=== PATIENT | female | born 1995 | race Caucasian/White ===

== ENCOUNTER 2025-08-09 08:29 | Emergency (ER) | payer OTHER, SELFPAY ==
--- NOTE | ~2025-08-09 | XR_ITS ---
EXAMINATION: XR chest 2V, 08/09/2025 9:00 ESCROW ASSISTANT HISTORY: cough, congestion COMPARISON: No comparisons available. Technique: 2 views obtained. Findings: The lungs are clear, no effusion. No pneumothorax. Heart is normal size. Mediastinal and hilar contours are within normal limits. Bony thorax no acute abnormality. Impression: No acute cardiopulmonary abnormality. Reviewed, dictated and finalized at location P. OW ASSISTANT Impression: No acute cardiopulmonary abnormality.
[2025-08-09 08:50] VITALS: BP 115/68; PULSE 118; RESP 18; TEMP 36.8; O2SAT 98
--- OUTSIDE RECORDS SUMMARY | 2025-08-09 08:53 | XMS_ITS | Clinical Summary ---
Author Organization [facility] Address Formerly [facility] [place] [address] Care Team Providers Care Director Of Partner Marketing Name Role Phone None, Provider MD Primary Care Provider Unavaila ble Allergies Active Allergy Reactions Criticality Noted Date Comments Banana Hives,Itching,Rash,Swelling,Unknown High 02/23/2020 Medications amoxicillin-clav ulanate (AUGMENTIN) 875-125 MG tablet Take 1 tablet (875 mg total) by mouth 2 (two) times daily. 3 Active fluticasone propionate (FLONASE) 50 MCG/ACT nasal spray 2 sprays by Nasal route daily. Active ibuprofen (MOTRIN) 600 MG tablet Take 1 tablet (600 mg total) by mouth every 6 (six) hours as needed. Active omeprazole (PRILOSEC) 40 MG capsule Take 1 capsule (40 mg total) by mouth daily. 3 Active naproxen (NAPROSYN) 500 MG tabletIndication s:Trochanteric bursitis of right hip,Right medial knee pain Take 1 tablet (500 mg total) by mouth 2 (two) times daily with meals. 60 tablet 4 Active hydrocortisone (ANUSOL-HC) 2.5 % rectal creamIndications :Hemorrhoids, unspecified hemorrhoid type Place rectally 2 (two) times daily. 28 g 3 4 Active buPROPion XL (WELLBUTRIN XL) 150 MG 24 hr tabletIndication s:Anxiety Take 1 tablet (150 mg total) by mouth daily. 90 tablet 1 4 Active Active Problems No known active problems Immunizations Immunization Administration Dates Next Due Dtap (Acel-Immune) 08/10/2002 HPV4 (Gardasil) 03/26/2010 Hepatitis A (Havrix 1440 El.U) 02/23/2020 Hepatitis A (Havrix 720 El.U) 04/27/2007, 006 Influenza (FluMist) 04/16/2009 Influenza Adult (Generic) 05/22/2021 MMR (MMRII) 08/10/2002 Meningococcal (Menactra) 04/16/2009 Polio IPV (Ipol) 08/10/2002 Tdap (Generic) 02/23/2019,04/16/2009 Varicella (Varivax) 04/27/2007 Family History Medical History Relation Comments Cancer Maternal Grandmother fromg lung cancer in 11/2020 Alcohol Abuse Mother Asthma Mother Dementia Paternal Grandfather Dementia Paternal Grandmother Relation Status Comments Maternal Grandmother Mother Paternal Grandfather Paternal Grandmother Social History Tobacco Use Types Packs/Day Years Used Date Smoking Tobacco: Former Cigarettes 1 3 Q uit: 06/24/2020 Smokeless Tobacco: Never Tobacco Cessation:Counseling Given: No Alcohol Use Standard Drinks/Week Comments Yes 3.3 (1 standard drink = 0.6 oz p ure alcohol) rarely PHQ-2 Answer Date Recorded Patient Health Questionnaire-2 Score 4 01/19/2024 Comments No Sex and Gender Information Value Date Recorded Sex Assigned at Not on file Legal Sex Female 7:04 PM CDT Gender Identity Not on file Sexual Orientation Not on file Last Filed Vital Signs Vital Sign Reading Time Taken Comments Blood Pressure 101/65 01/19/2024 7:58 AM CDT Pulse 62 01/19/2024 7:58 AM CDT Temperature 36.7 C (98.1 F) 01/19/2024 7:58 AM CDT Respiratory Rate 16 01/19/2024 7:58 AM CDT Oxygen Saturation 99% 01/19/2024 7:58 AM CDT Inhaled Oxygen Concentration - - Weight 97.3 kg (214 lb 9.6 oz) 01/19/2024 7:58 A M CDT Height 175.3 cm (5' 9) 01/19/2024 7:58 AM CDT Body Mass Index 31.69 01/19/2024 7:58 AM CDT Plan of Treatment Health Maintenance Due Date Last Done Comments Cervical Cancer Screening Pa p Smear (Age 21 to 29) Every 3 Years 1997 HPV Vaccines (2 - 2-dose series) 09/26/2010 03/26/2010 Hepatitis B Vaccines (1 of 3 - 19+ 3-dose series) 2016 PHQ-2 (Physician [place]) 08/24/2024 01/19/2024 Annual Physical 01/18/2025 01/19/2024 COVID-19 Vaccine (3 - 2024-2 6 season) 2025 01/23/2021, 12/25/2020 Influenza Adult (#1) 2025 05/22/2021, 04/16/2009 Cervical Cancer Screening 10/22/2025 Po stponed from 1997 (Per Provider Recommendation) DTaP, Tdap and Td Vaccines ( 4 - Td or Tdap) 02/23/2029 02/23/2019, 04/16/2009, 08/10/2002 Meningococcal Vaccine Aged Out 04/16/2009 No cristiane claudia eligible based on patient's age to complete this topic Hepatitis A Vaccines Completed 02/23/2020, 04/27/2007, 04/09/2006 Hepatitis C Completed 01/19/2024 Meningococcal B Vaccine Aged Out No l onger eligible based on patient's age to complete this topic Pneumococcal Vaccine: Pediatrics (0 to 5 Years) and At-Risk Patients (6 to 49 Years) Aged Out No longer eligible b ased on patient's age to complete this topic RSV Immunizations Under 20 Months Aged Out No longer eligible b ased on patient's age to complete this topic Procedures Procedure Name Priority Date/Time Associated Diagnosis Comments HEPATITIS C ANTIBODY Routine 01/19/2024 8:53 AM CDT Encounter for hepatitis C screening test for low risk patient from Last 3 Months or Most Recently Relevant to Health Maintenance Results * HEPATITIS C ANTIBODY (01/19/2024 8:53 AM CDT) HEPATITIS C AB NON-REACTI VE NON-REACT ANGELIQUE 01/19/2024 10:16 PM CDT [facility] Comment: ANTIBODIES TO HCV NOT DETECTED. DOES NOT EXCLUDE THE POSSIBILITY OF EXPOSURE TO HCV. 01/19/2024 8:53 AM CDT Patricia Rodriguez MD LABORATORY Final Result [facility] [address] [place] [address], [id number] from Last 3 Months or Most Recently Relevant to Health Maintenance Insurance [facility] Care Teams Director Of Partner Marketing Relationship Specialty Start Date End Date None, Provider, PCP - General UNKNOWN PHYSICIAN SPECIALTY 10/02/23
--- OUTSIDE RECORDS SUMMARY | 2025-08-09 08:53 | XMS_ITS | Clinical Summary ---
Author Organization [facility] Virtual Care Address [address] [place] [phone] Phone Care Team Providers Care News Camera Operator Name Role Phone No, Physician Primary Care Provider [phone] Allergies Active Allergy Reactions Criticality Noted Date Comments Banana Hives,Itching,Swelling,Rash High 02/23/20 20 Medications valACYclovir (VALTREX) 1 gram tablet Take 2 tabs (2000 mg) 2 times a days for 1 day. 4 tablet 5 11/17/2022 Active Active Problems Problem Noted Date Diagnosed Date Routine adult health maintenance 07/22/2023 Overview (07/22/2023): Health Maintenance: -PCV20: N/A -Tdap vaccine: 2019 -Influenza vaccine: -Shingles vaccine: N/A -Colonoscopy: N/A -Last WWE: -Last Mammogram: N/A -Last DEXA: N/A -Last eye exam: N/A -Last MHA: N/A GERD (gastroesophageal reflux disease) 3 Hemorrhoids 03/25/2022 Depression, major, recurrent, mild 05/22/2021 12/26/2022 Generalized anxiety disorder with panic attacks 05/22/2021 12/26/2022 Immunizations Immunization Administration Dates Next Due DTaP 08/10/2002 HPV, Quadrivalent 03/26/2010 Hep A, Adult 02/23/2020 Hep A, Pediatric 04/27/2007,04/09/2006 Hep A, Unspecified 04/27/2007,04/09/2006 IPV 08/10/2002 Influenza LAIV (Nasal) 04/16/2009 Influenza, Quadrivalent, Karley l Culture-based MDCK, Preservative Free, Antibiotic Free, Intramuscular 05/22/2021 Influenza, Trivalent, Cell C ulture-based MDCK, Preservative Free, Antibiotic Free, Intramuscular 05/22/2021 Influenza, Unspecified 04/16/2009 MMR 08/10/2002 Meningococcal MCV4P (Menactra) 04/16/2009 Tdap 02/23/2019,04/16/2009 Varicella 04/27/2007 Social History Tobacco Use Types Packs/Day Years Used Date Smoking Tobacco: Never Assessed Comments Unknown Sex and Gender Information Value Date Recorded Sex Assigned at Not on file Legal Sex Female 4:08 AM CDT Gender Identity Female 11/17/2022 4:11 AM CDT Sexual Orientation Lesbian 11/17/2022 4: 11 AM CDT Plan of Treatment Health Maintenance Due Date Last Done Comments Cervical Cancer Screening 1997 Depression Screening 1997 Hepatitis C Screening 1997 Varicella Vaccines (2 of 2 - 2-dose childhood series) 05/14/2009 04/27/2007 HPV Vaccines (2 - 2-dose series) 09/26/2010 03/26/2010 Hepatitis B Screening 2015 Regular Well Visit/Exam 18-64 2015 Covid-19 Vaccine ( season) 2025 01/23/2021, 12/25/2020 Influenza Vaccine (#1) 2025 , 05/22/2021, 04/16/2009, Additional history exists DTaP/Tdap/Td Vaccine (4 - Td or Tdap) 02/23/2029 02/23/2019, 04/16/2009, 08/10/2002 Pneumococcal vaccine <65 Aged Out No longer eligible based on patient's age to complete this topic Insurance [employer] C[employer] Care Teams News Camera Operator Relationship Specialty Start Date End Date No, Physician PCP - General 07/20/23
--- OUTSIDE RECORDS SUMMARY | 2025-08-09 08:53 | XMS_ITS | Encounter Summary ---
Author Organization [facility] Address [address] [place] [id number] Care Team Providers Care Medical Communication Specialist Name Role Phone None, Provider Primary Care Provider Unavaila ble Encounter Details Date Type Department Care Team (Late st Contact Info) Description 02/22/2024 Endymedt Message Enc [facility] Family Medicine [facility] [address] [place] [phone] Patricia Rodriguez MD [address] [place] [address] Questions about Bupropion medication Social History Tobacco Use Types Packs/Day Years Used Date Smoking Tobacco: Former Cigarettes 1 3 Q uit: 06/24/2020 Smokeless Tobacco: Never Alcohol Use Standard Drinks/Week Comments Yes 3.3 (1 standard drink = 0.6 oz p ure alcohol) rarely PHQ-2 Answer Date Recorded Patient Health Questionnaire-2 Score 4 01/19/2024 Comments No Sex and Gender Information Value Date Recorded Sex Assigned at Not on file Legal Sex Female 7:04 PM CDT Gender Identity Not on file Sexual Orientation Not on file documented as of this encounter Plan of Treatment Not on file documented as of this encounter Visit Diagnoses Not on filedocumented in this encounter Additional Health Concerns Assessment Noted Time PHQ-9 Depression Total Score: 13 024 7:59 AM CDT documented as of this encounter Care Teams Medical Communication Specialist Relationship Specialty Start Date End Date None, Provider, PCP - General UNKNOWN PHYSICIAN SPECIALTY 10/02/23 documented as of this encounter
--- OUTSIDE RECORDS SUMMARY | 2025-08-09 08:53 | XMS_ITS | Clinical Summary ---
Author Organization [facility] Address [address] [place] [address] Care Team Providers Care Assembly Line Inspector Name Role Phone Anthony Hall DO Primary Care Provider [phone] Jose Yates MD Unavailable [phone] Cronelia James APRN-PASSENGER CONDUCTOR Unavailable [phone] Source Comments [facility],non-owned Affiliates and Associated Physician Practices is amultiple site organization consisting of ambulatory clinics and hospital sitesin [place], [place], [place] and [place]. This disclosure is being madepursuant to the Care Everywhere program and may not contain all information available regarding this patient. Last updated 18.[facility] Allergies Active Allergy Reactions Criticality Noted Date Comments Banana Unknown 02/23/2020 Medications * Be aware that medications may not be up to date on this document. Alwaysverify current medications with the patient. Acetaminophen (TYLENOL) 325 MG CAPS Take 3 capsules by mouth as needed Active lidocaine (Lidoderm) 4 % patch Apply 1 (one) patch to skin as needed Apply patch to most painful area and remove after 12 hours. May reapply a new patch 12 hours later. Active Active Problems Problem Noted Date Diagnosed Date Hemorrhoids 03/25/2022 Depression, major, recurrent, mild 05/22/2021 Generalized anxiety disorder 05/22/2021 Overweight 05/22/2021 Immunizations Immunization Administration Dates Next Due Covid Moderna primary monovalent 12+ yr 0.5mL ,12/25/2020 DTaP VACCINE IM (6wk-6yrs) 08/10/2002 HEP A PED/ADULT VACCINE 04/27/2007,04/09/2006 HEP A VACCINE, ADULT 02/23/2020 Human Papilloma Virus Quadrivalent Vaccine 03/26 INFLUENZA VACCINE 04/16/2009 INFLUENZA VACCINE, CELL CULT URE, QUADR. (FLUCELVAX QUADRIVALENT; 6MO+) (CCIIV4) 05/22/2021 MENINGOCOCCAL ACWY (MCV4P) VAC IM 04/16/2009 MMR 08/10/2002 POLIO IPV 08/10/2002 TDAP (7yrs+) 02/23/2019,04/16/2009 VARICELLA 04/27/2007 Family History Medical History Relation Name Comments None Known Brother None Known Father Asthma Mother Multiple Sclerosis Mother None Known Sister Relation Name Status Comments Brother Alive Father Alive Mother Alive Sister Alive Social History Tobacco Use Types Packs/Day Years Used Date Smoking Tobacco: Former Cigarettes 1 4 1 - 05/24/2020 Smokeless Tobacco: Never Tobacco Cessation:Counseling Given: Not Answered Alcohol Use Standard Drinks/Week Comments Yes 0 (1 standard drink = 0.6 oz pur e alcohol) 1 drink everyother day PHQ-2 Answer Date Recorded PHQ2 TOTAL SCORE 0 08/04/2022 Comments No Sex and Gender Information Value Date Recorded Sex Assigned at Female 10/14/2021 2:02 PM [employer] Legal Sex Female 1:44 PM CDT Gender Identity Female 10/14/2021 2:02 PM [employer] Sexual Orientation Lesbian 10/14/2021 2: 02 PM [employer] Last Filed Vital Signs Vital Sign Reading Time Taken Comments Blood Pressure 120/68 08/04/2022 2:55 PM [employer] Pulse 81 08/04/2022 2:55 PM [employer] Temperature 37.3 C (99.2 F) 08/04/2022 2:55 PM [employer] Respiratory Rate 18 01/31/2022 4:05 PM CDT Oxygen Saturation 86% 08/04/2022 2:5 5 PM [employer] has gel nail vietnamese Inhaled Oxygen Concentration - - Weight 83 kg (183 lb) 08/04/2022 2:55 PM [employer] Height 175.3 cm (5' 9) 03/25/2022 1:20 PM CDT Body Mass Index 27.02 03/25/2022 1:20 PM CDT Plan of Treatment Health Maintenance Due Date Last Done Comments HPV VACCINE (2 - 2-dose series) 09/26/2010 03/26/2010 HEPATITIS B VACCINE (1 of 3 - 19+ 3-dose series) 2016 DEPRESSION SCREENING 08/24/2024 08/04/2022, 07/30/2022, 07/22/2022, Additional history exists PAP SMEAR 09/09/2024 09/09/2021, 10/08/2018 (Done Outside Per Report) COVID-19 VACCINE ( season) 2025 01/23/2021, 12/25/2020 INFLUENZA VACCINE (#1) 2025 05/22/2021, 2008 DTAP/TDAP/TD VACCINES (4 - Td or Tdap) 02/23/2029 02/23/2019, 04/16/2009, 08/10/2002 ZOSTER VACCINE (1 of 2) 2047 MENINGOCOCCAL GROUPS A/C/Y/W VACCINE Aged Out 04/16/2009 No longer eligible based on patient's age to complete this topic HEPATITIS A VACCINE Completed 02/23/2020, 04/27/2007, 04/09/2006 HEPATITIS C SCREENING Discontinued 03/25/2022, 022 HIV SCREENING Discontinued 03/25/2022 HIB VACCINE Aged Out No longer eligi ble based on patient's age to complete this topic MENINGOCOCCAL (Group B) VACCINE SHARED DECISION-MAKING Aged Out No longer eligible based on patient's age to complete this topic PNEUMOCOCCAL VACCINE Aged Out No long er eligible based on patient's age to complete this topic Procedures Procedure Name Priority Date/Time Associated Diagnosis Comments HEPATITIS C ANTIBODY Routine 03/25/2022 1:50 PM CDT Screen for STD (sexually transmitted disease) HIV-1 HIV-2 ANTIBODY + HIV P24 AG PANEL Routine 03/25/2022 1:50 PM CDT Screen for STD (sexually transmitted disease) PAP IG LB CT+NG RFLX HPV APTIMA ASCU Routine 09/09/2021 11:31 AM [employer] Pap smear, as part of routine gynecological examination Screening examination for STD (sexually transmitted disease) from Last 3 Months or Most Recently Relevant to Health Maintenance Results * HIV-1 HIV-2 ANTIBODY + HIV P24 AG PANEL (03/25/2022 1:50 PM CDT) Pathologist [facility] HIV Screen 4th Generation w Reflex Non Reactive Non Reactive [facility] Comment: HIV Negative HIV-1/HIV-2 antibodies and HIV-1 p24 antigen were NOT detected. There is no laboratory evidence of HIV infection. Blood BLOOD SPECIMEN / Unknown 03/25/2022 1:50 PM CDT 03/25/2022 Narrative Resulting Agency Comment Lab Testing performed at: [address] [id number] Anel Gore APRN-PASSENGER CONDUCTOR LAB - CHEMISTRY ORDERAB LES Final Result [facility] INSURANCE BILL [address] [place] [address] * HEPATITIS C ANTIBODY (03/25/2022 1:50 PM CDT) [facility] Hepatitis C Antibody 0.1 0.0 - 0.9 s/co ratio [facility] Comment: Negative: < 0.8 Indeterminate: 0.8 - 0.9 Positive: > 0.9 . HCV antibody alone does not differentiate between previous resolved infection and active infection. The CDC and current clinical guidelines recommend that a positive HCV antibody result be followed up with an HCV RNA test to support the diagnosis of acute HCV infection. [facility] offers Hepatitis C Virus (HCV) RNA, Diagnosis, JAI (542567) and Hepatitis C Virus (HCV) Antibody with reflex to Quantitative Real-time PCR ([id number]). Blood BLOOD SPECIMEN / Unknown 03/25/2022 1:50 PM CDT 03/25/2022 Narrative Resulting Agency Comment Lab Testing performed at: [address] [id number] Anel J Sevem PASSENGER TRAIN BRAKER-PASSENGER CONDUCTOR LAB - CHEMISTRY ORDERAB LES Final Result [facility] INSURANCE BILL [address] [place] [place] [address] * PAP IG LB CT+NG RFLX HPV APTIMA ASCU (09/09/2021 11:31 AM [employer]) Diagnosis [facility] INSURANCE BILL Comment:NEGATIVE FOR INTRAEP ITHELIAL LESION OR MALIGNANCY. Specimen Adequacy [facility] INSURANCE BILL Comment: Satisfactory for evaluation. Endocervical and/or squamous metaplastic cells (endocervical component) are present. Clinician Provided ICD10 [facility] INSURANCE BILL Comment: Z01.419 Z11.3 Performed by [facility] INSURANCE BILL Comment:Libertad Palacios Cyto technologist (ASCP) Comment . [facility] INSURANCE BILL Note [facility] INSURANCE BILL Comment: The Pap smear is a screening test designed to aid in the detection of premalignant and malignant conditions of the uterine cervix. It is not a diagnostic procedure and should not be used as the sole means of detecting cervical cancer. Both false-positive and false-negative reports do occur. . IGLBP CPT Code Automation [facility] INSURANCE BILL Comment: This liquid based ThinPrep(R) pap test was screened with the use of an image guided system. Note [facility] INSURANCE BILL Comment: The HPV DNA reflex criteria were not met with this specimen result therefore, no HPV testing was performed. . Chlamydia trachomatis JAI Negative Negative [facility] INSURANCE BILL GC DNA Probe Negative Negative [facility] INSURANCE BILL PART OF UTERINE CERVIX / Unknown 09/09/2021 11:31 AM [employer] 09/10/2021 Narrative [facility] INSURANCE BILL - 09/11/2021 1:08 PM [employer] Source.............Cervix;Endocervix LMP / Prev Treat...VAT=[id number] No. of containers..01 ThinPrep Vial Resulting Agency Comment [facility]: [facility] [id number] [place] James Esquivel MD LAB - PATHOLOGY/CYTOLOGY ORD ERABLES Final Result Performing Organization Address City/[facility]/ZIP Co de Phone Number [facility] INSURANCE BILL [address] [place] [address] from Last 3 Months or Most Recently Relevant to Health Maintenance Insurance [employer] Care Teams Assembly Line Inspector Relationship Specialty Start Date End Date Anthony Hall DO [address] [place] [phone] PCP - General Internal Medicine 05/22/21 Jose Yates MD [address] [place] [phone] Gastroenterology 05/22/21 Cornelia James APRN-PASSENGER CONDUCTOR [address] [place] [phone] Envelope Maker Nurse Practitioner [facility] 05/22/21
--- OUTSIDE RECORDS SUMMARY | 2025-08-09 08:53 | XMS_ITS | Clinical Summary ---
Author Organization [facility] Address [address] [place] [address] Care Team Providers Care Cone Machine Feeder Name Role Phone Florencia Garrison MD Primary Care Provider [phone] Allergies Active Allergy Reactions Criticality Noted Date Comments Banana Hives,Itching,Swelling High 10/10/2022 Medications fluticasone propionate (FLONASE) 50 mcg/spray [place], Suspension nasal inhaler Administer 2 Sprays in each nostril daily. Active omeprazole (PriLOSEC) 40 mg Capsule, Delayed Release(E.C.)Ind ications:Gastroe sophageal reflux disease, unspecified whether esophagitis present Take 1 Capsule (40 mg) by mouth daily. 30 Capsule 2 3 Active loratadine (CLARITIN) 10 mg tablet Take 1 Tablet (10 mg) by mouth daily. 5 Active cholecalciferol, Vitamin D3, 50 mcg (2,000 unit) TabletIndication s:Vitamin D deficiency Take 1 Tablet (2,000 Units) by mouth daily. 5 Active acetaminophen (TYLENOL) 500 mg tablet Take 1,000 mg by mouth every 6 hours as needed for Pain. Active hydrocortisone (Anusol-HC) 2.5 % cream with perineal applicatorIndica tions:Other hemorrhoids Insert by rectum 2 times daily. 30 Gram 2 5 Active Active Problems Problem Noted Date Diagnosed Date Change in bowel movement 07/06/2025 Assessment & Plan (07/06/2025 4:58 PM BROKERAGE MANAGER): Acute. No alarm symptoms. Recommend she keep food log to try to identify triggers, increase fiber and try elimination diet. If no improvement in four weeks can refer to GI for possible colonoscopy. She is agreeable. GERD (gastroesophageal reflux disease) 3 Hemorrhoids 03/25/2022 Generalized anxiety disorder with panic attacks 05/22/2021 Depression, major, recurrent, mild 05/22/2021 Overweight 05/22/2021 Resolved Problems Problem Noted Date Diagnosed Date Resolved Date Screening for cervical cancer 07/06/2025 07/06/2025 Encounters Date Type Department Care Team Description 07/06/2025 3:00 PM BROKERAGE MANAGER Office Visit [facility] Internal Medicine - [address] [address] Holly Flores PA-C Change in bowel movement (Primary Dx); Other hemorrhoids 05/23/2025 External Device Data STL ABSTRACTION Provider, Abstract from Last 3 Months Immunizations Immunization Administration Dates Next Due (ADACEL/BOOSTRIX)(10 YR UP) TDAP VACCINE, 0.5ML, IM 02/23/2019,04/16/2009 (GARDASIL)(9-45 YRS) HUMAN P APILLOMAVIRUS VACCINE, TYPES 6, 11, 16, 18, QUADRIVALENT (4VHPV), 3 DOSE, IM 03/26/2010 (HAVRIX/VAQTA)(12 MO-18 YRS) HEPATITIS A VACCINE 0.5 ML PED/ADOL 2 DOSE, IM 04/27/2007,04/09/2006 (INFANRIX)(6 WKS-6 YRS) DIPT HERIA, TETANUS TOXOIDS, AND ACCELLULAR PERTUSSIS VACCINE (DTAP), 0.5 ML IM 08/10/2002 (IPOL)(6 WKS AND UP) POLIOVI KENNY VACCINE, INACTIVATED (IPV), 3 DOSE, SUBCUT OR IM 08/10/2002 (M-M-R II/PRIORIX)(12 MO UP) MEASLES, MUMPS AND RUBELLA VIRUS VACCINE, 0.5 ML IM/SUBCUT 08/10/2002 (MENACTRA)(9 MO-55 YR) MENIN GOCOCCAL POLYSACCHARIDE A, C, Y AND W-135 DIPTHERIA TOXOID CONJUGATE VACCINE, (PF), 0.5ML, IM 04/16/2009 (VARIVAX)(12 MOS UP)VARICELL A VIRUS VACCINE (PF) 0.5 ML, SUB CUT 04/27/2007 Hepatitis A Vaccine 02/23/2020 Hepatitis A Vaccine, Unspecified Formulation 11/2006,04/09/2006 INFLUENZA VACCINE QUADRIVALE NT 6 MOS UP CELL DERIVED PF IM 05/22/2021 Influenza Vaccine 18+ C.derived Pf Im 05/22/2021 Influenza Vaccine Nasal 04/16/2009 Influenza, Unspecified Formulation 05/22/2021, Family History Medical History Relation Name Comments Healthy Brother Healthy Father Unknown Maternal Grandfather Breast Cancer Maternal Grandmother Eloina Galaviz Lung Cancer Maternal Grandmother Eloina Galaviz She pa ssed in 12/12 from lung cancer Asthma Mother Rylie Lawrence Multiple Sclerosis Mother Rylie Lawrence Other Mother Rylie Lawrence Has had MS sinc e 2000 Alzheimer's Disease Paternal Grandfather Carl Lawrence Cancer Paternal Grandfather Carl Lawrence Prostat e cancer Alzheimer's Disease Paternal Grandmother Healthy Paternal Grandmother Healthy Sister Relation Name Status Comments Brother Alive Father Alive Maternal Grandfather Maternal Grandmother Eloina Galaviz Alive breast ca 70's Mother Rylie Lawrence Alive Paternal Grandfather Carl Lawrence Alive prostat e Paternal Grandmother Alive Sister Alive Social History Tobacco Use Types Packs/Day Years Used Date Smoking Tobacco: Former Cigarettes 1 2 1 08/24/2017 - 06/24/2020 Tobacco Cessation:Counseling Given: No Comments:I have stopped vaping and smoking cigarettes/tobacco but I used to smoke very frequently Alcohol Use Standard Drinks/Week Comments Yes 2 (1 standard drink = 0.6 oz pure alcohol) I have stomach issues that are aggravated by alcohol Feeling Safe Answer Date Recorded Within the last year, have y ou been afraid of your partner or ex-partner? No 03/19/2020 Within the last year, have y ou been humiliated or emotionally abused in other ways by your partner or ex-partner? No Within the last year, have y ou been kicked, hit, slapped, or otherwise physically hurt by your partner or ex-partner? No 03/19/2020 Within the last year, have y ou been raped or forced to have any kind of sexual activity by your partner or ex-partner? No 03/19/2020 Social Connections Answer Date Recorded In a typical week, how many times do you talk on the phone with family, friends, or neighbors? Three times a week 03/19/2020 How often do you get togethe r with friends or relatives? Once a week 03/19/2020 How often do you attend chur ch or rastafari services? Never 03/19/2020 Do you belong to any clubs o r organizations such as protestant groups, unions, fraternal or athletic groups, or school groups? No 03/19/2020 How often do you attend meet ings of the clubs or organizations you belong to? Never 03/19/2020 Are you , , di vorced, , never , or living with a partner? Never 03/19/2020 Financial Resource Strain Answer Date R ecorded How hard is it for you to pa y for the very basics like food, housing, medical care, and heating? Somewhat hard 03/19/2020 Food Insecurity Answer Date Recorded Within the past 12 months, y ou worried that your food would run out before you got the money to buy more. Never true 03/19/20 20 Within the past 12 months, t he food you bought just didn't last and you didn't have money to get more. Never true 03/19/2020 Transportation Needs Answer Date Record ed In the past 12 months, has l ack of transportation kept you from medical appointments or from getting medications? No 02/22 In the past 12 months, has l ack of transportation kept you from meetings, work, or from getting things needed for daily living? No 03/19/2020 Education Answer Date Recorded What is the highest level of school you have completed or the highest degree you have received? 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 Not on file Not on file Not on file Last Filed Vital Signs Vital Sign Reading Time Taken Comments Blood Pressure 112/72 07/06/2025 3:00 PM BROKERAGE MANAGER Pulse 67 07/06/2025 3:00 PM BROKERAGE MANAGER Temperature 36.4 C (97.5 F) 07/06/2025 3:00 PM BROKERAGE MANAGER Respiratory Rate 18 07/06/2025 3:00 PM BROKERAGE MANAGER Oxygen Saturation 97% 07/06/2025 3:00 PM BROKERAGE MANAGER Inhaled Oxygen Concentration - - Weight 99.3 kg (219 lb) 07/06/2025 3:00 PM BROKERAGE MANAGER Height 175.3 cm (5' 9) 07/06/2025 3:00 PM BROKERAGE MANAGER Body Mass Index 32.34 07/06/2025 3:00 PM BROKERAGE MANAGER Plan of Treatment Upcoming Encounters Date Type Department Care Team (Late st Contact Info) Description 09/27/2025 3:30 PM BROKERAGE MANAGER Office Visit [facility] Internal Medicine - [address] [address] Charissa Benavides, [facility] [place] [address] Health Maintenance Due Date Last Done Comments HPV VACCINES (2 - 2-dose series) 09/26/2010 03/26/20 10 HEPATITIS B VACCINES (1 of 3 - 19+ 3-dose series) 2016 HPV/Cotest (21-29) 2018 CERVICAL CANCER SCREENING 09/19/2024 PAP SMEAR 09/19/2024 09/19/2021 (Prev iously completed), 09/11/2021 (Previously completed) INFLUENZA VACCINE (#1) 2025 , 05/22/2021, 04/16/2009 COVID-19 Vaccine (3 - 2024-2 6 season) 2025 01/23/2021, 12/25/2020 DTAP/TDAP/TD VACCINES (4 - T d or Tdap) 02/23/2029 02/23/2019, 04/16/2009, 08/10/2002 CHLAMYDIA SCREENING (ANNUAL) 11-24 YEARS Discontinued 03/19/2020 Preventative Visit- Commercial Completed 0 09/27/2024, 01/19/2024, 10/28/2022, Additional history exists Procedures Procedure Name Priority Date/Time Associated Diagnosis Comments VAGINOSIS/VAGINITIS PANEL PLUS Routine 03/19/2020 10:23 AM CDT Vaginal odor Vaginal itching Screening examination for STD (sexually transmitted disease) from Last 3 Months or Most Recently Relevant to Health Maintenance Results * VAGINOSIS/VAGINITIS PANEL PLUS (03/19/2020 10:23 AM CDT) LACTOBACILLUS SPECIES 7.3 Log (cells/m L) 04/02/2020 2:11 AM CDT [facility] JAI - ATOPOBIUM VAGINAE NOT DETECTED Log (cells/m L) 04/02/2020 2:11 AM CDT [facility] JAI - MEGASPHAERA SPECIES NOT DETECTED Log (cells/m L) 04/02/2020 2:11 AM CDT [facility] GARDNERELLA VAGINALIS <4.7 Log (cells/m L) 04/02/2020 2:11 AM CDT [facility] CATEGORY NOT SUPPORTIVE 04/02/2020 2:11 AM CDT [facility] Comment: REFERENCE RANGE: BV Category: NOT SUPPORTIVE Methodology: Real-Time PCR NOT SUPPORTIVE OF BV: The pattern of results is not supportive of a diagnosis of BV: 1) Presence of Lactobacillus spp., G. vaginalis levels less than 6.0 log cells/mL, and absence of A. vaginae and Megasphaera spp; or 2) Absence of all targeted organisms; or 3) Absence of Lactobacillus spp. plus G. vaginalis detected at levels less than 6.0 log cells/mL and absence of A. vaginae and Megasphaera spp. EQUIVOCAL FOR BV: The pattern of results is neither supportive nor not supportive of a diagnosis of BV. The patient may be in transition into or out of BV: Presence of Lactobacillus spp. plus G. vaginalis (greater or equal to 6.0 log cells/mL) and/or one of the other BV-associated pathogens. SUPPORTIVE OF BV: The pattern of results is supportive of a diagnosis of BV: Absence of Lactobacillus spp. and presence of G. vaginalis greater than or equal to 6.0 log cells/mL and/or one or both of the other BV-associated pathogens. Concentration for Lactobacilli (L. acidophilus/crispatus, L. jensenii) are collectively reported under the term Lactobacillus spp., as these species are among the peroxide producing Lactobacilli thought to be protective against bacterial vaginosis. Atopobium vaginae, Megasphaera spp., and Gardnerella (greater than 6.0 log cells/mL) have been associated with vaginosis when present in the absence of peroxidase producing Lactobacilli. This test was developed and its analytical performance characteristics have been determined by [facility]. It has not been cleared or approved by FDA. This assay has been validated pursuant to the CLIA regulations and is used for clinical purposes. Sarah albicans NOT DETECTED 2019 2:11 AM CDT [facility] Sarah glabrata NOT DETECTED 2019 2:11 AM CDT [facility] C. TROPICALIS DNA NOT DETECTED 04/02 2:11 AM CDT [facility] Sarah Parapsilosis NOT DETECTED 04/02/2020 2:11 AM CDT [facility] Comment: REFERENCE RANGE: NOT DETECTED Methodology: Real-Time PCR This test was developed and its analytical performance characteristics have been determined by [facility]. It has not been cleared or approved by FDA. This assay has been validated pursuant to the CLIA regulations and is used for clinical purposes. SURESWAB(R) TRICHOMONAS VAGINALIS RNA QL TMA NOT DETECTED 04/02/2020 2:11 AM CDT [facility] Comment: REFERENCE RANGE: NOT DETECTED Methodology: Leather Heel Breaster Mediated Amplification (TMA) For additional information, please refer to [email or web address] (This link is being provided for informational/educational purposes only.) C TRAC RNA NOT DETECTED 04/02/2020 2:11 AM CDT [facility] N.GONORRHOEAE RNA, TMA NOT DETECTED 04/02/2020 2:11 AM CDT [facility] Comment: REFERENCE RANGE: NOT DETECTED Methodology: Leather Heel Breaster Mediated Amplification (TMA) to detect RNA. The analytical performance characteristics of this assay, when used to test SurePath(TM) specimens have been determined by [facility]. The modifications have not been cleared or approved by the FDA. This assay has been validated pursuant to the CLIA regulations and is used for clinical purposes. For additional information, please refer to [email or web address]/[email or web address] (This link is being provided for informational/ educational purposes only.) Genital SPECIMEN FROM VAGINA / Unknown Collection / Unknown 03/19/2020 10:23 AM CDT 03/19/2020 1:50 PM CDT Narrative [facility] - 04/02/2020 2:11 AM CDT Performing Organization Information: Site ID: [id number] Name: [employer] [facility] [employer] Address: [address] [place] [address] Director: Benitez Sherwood MD Performing Organization Information: Site ID: [id number] Name: [employer] Address: [address] [place] [address] Director: Benitez Sherwood MD Performing Organization Information: Site ID: [id number] Name: [employer] Address: [address] [place] [address] Director: Benitez Sherwood MD Performing Organization Information: Site ID: [id number] Name: [employer] Address: [address] [place] [address] Director: Benitez Sherwood MD Cornelia James NP MICROBIOLOGY - GENERAL ORD ERABLES Final Result Performing Organization Address City/State/[facility] Co de Phone Number [facility] [phone] from Last 3 Months or Most Recently Relevant to Health Maintenance Insurance [facility] [id number] Care Teams Cone Machine Feeder Relationship Specialty Start Date End Date Florencia Garrison MD [address] [place] [phone] PCP - General Internal Medicine 08/22/24
--- OUTSIDE RECORDS SUMMARY | 2025-08-09 09:05 | XMS_ITS | Clinical Summary ---
Author Organization [employer] [facility] Address [address] [place] [address] Care Team Providers Care Supervisor Covering And Lining Name Role Phone No, Pcp FIRMWARE ARCHITECT Primary Care Provider Unavailabl e Social History Tobacco Use Types Packs/Day Years Used Date Smoking Tobacco: Never Assessed Comments Unknown Sex and Gender Information Value Date Recorded Sex Assigned at Not on file Legal Sex Female 10:31 AM EDT Gender Identity Not on file Sexual Orientation Not on file Plan of Treatment Not on file Medical Devices Not on file Care Teams Supervisor Covering And Lining Relationship Specialty Start Date End Date No, Pcp, FIRMWARE ARCHITECT N/A Do not use PCP - General Family Medicine 05/17/20
--- NOTE | 2025-08-09 09:33 | ED_ITS ---
HPI - URI/Sore Throat General Chief Complaint: Upper Respiratory Infection Stated Complaint: URI Time Seen by Provider: 08/09/25 09:15 Source: patient and RN notes reviewed Mode of arrival: ambulatory Limitations: no limitations History of Present Illness HPI Narrative: 30-year-old female presents Express Care complaining of chest congestion, fevers, body aches, chills, sweats, cough, congestion for 2 days. Patient said multiple people at her work as pneumonia. Patient took Tylenol this morning to help with symptoms. Patient denies any chest pain, difficulty breathing, nausea vomiting, diarrhea, or any other symptoms. Related Data Allergies Allergy/AdvReac Type Severity Reaction Status Date / Time No Known Allergies Allergy Verified 08/09/25 08:39 Review of Systems Review of Systems: CONSTITUTIONAL: Positive for body aches, fever, chills, and sweats. EYES: Denies visual changes, redness, or discharge. ENT: Denies rhinorrhea, sore throat, or otalgia. Positive for congestion CARDIOVASCULAR: Denies chest pain, palpitations,, dizziness, lightheadedness or edema. RESPIRATORY: Positive for cough. Negative for wheezing or Dyspnea. GASTROINTESTINAL: Denies abdominal pain, nausea, vomiting, or diarrhea. GENITOURINARY: Denies dysuria or hematuria. SKIN: Denies rash or itching. MUSCULOSKELETAL: Denies back pain, joint pain, or myalgia. NEUROLOGIC: Denies headache, numbness, or weakness. PSYCHIATRIC: Denies anxiety or depression. All other systems reviewed are negative, except as documented in HPI. PMFSH Comments At the time of my signature, I reviewed and agree with the nursing past medical, surgical, social, and family history. There is no relevant family history pertinent to the patient complaint. Exam 2 Narrative: GENERAL: This is a well-nourished, well-developed adult, in no apparent distress. They are non ill-appearing, nontoxic appearing. HEAD: normocephalic, atraumatic. EYES: Sclera clear/white. Conjunctiva normal. Vision is grossly intact. Extraocular movements intact EARS: External ears normal, auditory canals clear and without drainage, TMs no rmal without perforation. Hearing grossly intact. NOSE: External nose normal with no obvious nasal discharge, nasal turbinates without redness, no rhinorrhea. THROAT: Mucous membranes moist, posterior pharynx cobblestone appearing. Uvula midline. NECK: Neck supple, non-tender without lymphadenopathy, masses or thyromegaly. CARDIOVASCULAR: Regular rate and rhythm without murmurs, gallops, or rubs. RESPIRATORY: Right lower lobe diminished. Breath sounds equal bilaterally. No wheezes, rales, or rhonchi. Respiratory rate normal, respiratory effort nonlabored, no respiratory distress SKIN: warm, Dry, intact with no suspicious lesions or rash, good texture and turgor. NEURO: awake, alert, and oriented to person, place and time. There were no obvious focal neurologic abnormalities. EXTREMITIES: No joint tenderness, effusion, or edema noted. BACK: Nontender without deformity. Course Course Level of Care: Express Care Visit Vital Signs Vital signs: Vital Signs Temperature 98.3 F 08/09/25 08:50 Pulse Rate 118 H 08/09/25 08:50 Respiratory Rate 18 08/09/25 08:50 Blood Pressure 115/68 08/09/25 08:50 Pulse Oximetry 98 08/09/25 08:50 Oxygen Delivery Room Air 08/09/25 08:50 Temperature 98.3 F 08/09/25 08:50 Pulse Rate 118 H 08/09/25 08:50 Respiratory Rate 18 08/09/25 08:50 Blood Pressure 115/68 08/09/25 08:50 Pulse Oximetry 98 08/09/25 08:50 Oxygen Delivery Room Air 08/09/25 08:50 [facility] Narrative Medical decision making narrative: Rapid COVID, flu, strep were negative. A throat culture is pending. Chest x- ray is negative for any acute cardiopulmonary findings. Patient's right diminished lung sounds, no obvious gross adventitious lung sounds heard. However there is clinical suspicion patient may be developing pneumonia. Patient is mildly tachycardic, afebrile she did take Tylenol this morning. Otherwise vital signs hemodynamically stable, patient nontoxic appearing, no apparent distress. Will go ahead and treat her with amoxicillin and azithromycin. Discussed physical exam findings. Advised supportive measures and signs/symptoms to go to the ER. Pt is appropriate for outpt treatment and f/u. Differential Diagnosis Differential Diagnosis: Differential diagnostic considerations for upper respiratory infection include upper respiratory infection, croup, otitis media, sinusitis, viral infection, bronchitis, influenza, pharyngitis, strep, uvulitis, pneumonia. Lab Data [facility] Lab Attestation statement: I personally reviewed the patient's lab results. Imaging Data Radiologist's impression: ITS Impressions Chest X-Ray 08/09/25 09:08 Impression: No acute cardiopulmonary abnormality. Critical Care Time Critical Care Time Critical Care Time: No Discharge Plan Discharge Clinical Impression: Acute purulent bronchitis Patient Disposition: Home Condition: Stable Instructions: Antibiotic Form, Community Acquired Pneumonia (ED) Additional Instructions: Rapid COVID, flu, strep were negative. Throat culture is pending if it is positive for strep you will be contacted. Chest x-ray was negative for any acute cardiopulmonary findings. There is clinical suspicion for pneumonia. Pneumonia is a lung infection that can cause a fever, cough, and trouble br eathing. Take antibiotics as directed until complete. eat small frequent meals. Get lots of rest and drink fluids. Alternate Tylenol and ibuprofen for pain/fever follow instructions on the bottle. If you have nasal congestion, you can take Zyrtec along with Flonase spray Call your Primary Care Doctor and make a follow-up appointment in 3 days. Go to the ER for worsening symptoms, chest pain, breathing problems, severe weakness, vomiting, uncontrolled fevers, or any serious concerns Patient Language: St Helenian Prescriptions: New amoxicillin 500 mg tablet 1,000 mg PO TID 5 Days Qty: 30 0RF azithromycin 250 mg tablet See Rx Instructions .ROUTE .COMPLEX Qty: 6 0RF Rx Instructions: For 250 mg dose pack: take 500 mg today (day 1), then 250 mg for 4 days (days 2-5) Follow-up/Referrals: PHYSICIAN NOT ON STAFF,NONSTAFF [Primary Care Provider] Stand Alone Forms: Work/School Release IP Time of Disposition: :30
[2025-08-09 10:01] LABS: EDCOVIDSCREEN Negative (Negative); EDINFLUASCREEN Negative (Negative); EDINFLUBSCREEN Negative (Negative); EDSTREPNEGPOS1 Negative (Negative)
== END 2025-08-09 09:33 | disposition home or self-care (01) ==
DX: J20.9 Acute bronchitis, unspecified (principal); Z20.822 Contact with and (suspected) exposure to COVID-19; K21.9 Gastro-esophageal reflux disease without esophagitis; Z86.16 Personal history of COVID-19
CPT/HCPCS: 71046; 87081; 87426; 87804; 87880; 99213; G0463